=== PATIENT | male | born 1990 | race Caucasian/White ===

== ENCOUNTER 2019-03-16 14:47 | Emergency (ER) | payer MEDICAID ==
[~2019-03-16] VITALS: Ht 188 cm; Wt 84.1 kg
[2019-03-16 15:12] VITALS: BP 132/77
[2019-03-16] MEDS ORDERED: TETanus/Pertussis (Acell)/Diphther VAC/PF (Tdap-Adult) 0.5ml syringe IM ONE (16:00)
== END 2019-03-16 16:36 | disposition home or self-care (01) ==
LOC: ER 14:48
DX: S61.432A Puncture wound without foreign body of left hand, initial encounter (principal); F41.9 Anxiety disorder, unspecified; F12.90 Cannabis use, unspecified, uncomplicated; W29.8XXA Contact with other powered hand tools and household machinery, initial encounter; Y93.89 Activity, other specified; Y92.89 Other specified places as the place of occurrence of the external cause; Y99.8 Other external cause status
CPT/HCPCS: 90471; 99283

== ENCOUNTER 2021-06-13 21:30 | Emergency (ER) | payer MEDICAID | END 2021-06-13 23:06 | disposition left against medical advice (07) | LOC: ER 21:30 | DX: Z53.21 Procedure and treatment not carried out due to patient leaving prior to being seen by health care provider (principal) ==